=== PATIENT | male | born 1995 | race Caucasian/White ===

== ENCOUNTER 2016-07-15 23:06 | Emergency (ER) | payer BC ==
[2016-07-15 23:25] VITALS: RESP 18
[2016-07-16] MEDS ORDERED: DEXAMETHASONE SOD PHOSPHATE 10 MG/ML 1 ML VIAL IM STA (00:03)
[2016-07-16] MEDS ORDERED: FAMOTIDINE 20 MG TAB PO STA (00:03)
--- NOTE | 2016-07-16 00:06 | ED ---
General Adult HPI - General Chief complaint: Allergic Reaction Stated complaint: Allergic Reaction/SOB Time Seen by Provider: 07/15/16 23:59 Source: patient, RN notes reviewed, old records reviewed Mode of arrival: ambulatory Limitations: no limitations - History of Present Illness Initial comments: 20-year-old male here for evaluation. This patient presents here for evaluation of possible ALLERGIC reaction ALLERGIC exposure, patient has known history of peanut ALLERGY. Patient was eating wheat candy tonight that was barely happy about it. Patient became very paranoid about in the upper but he states he was able to drink a beer and felt better. Patient felt mild closing of his throat but no shortness of breath. Friends noticed that they thought his lips might of been swelling. Patient states it felt find him. No fever no rash noted - Related Data Previous Rx's Medication Instructions Recorded Famotidine [Pepcid] 40 mg PO BID #30 tab 07/16/16 diphenhydrAMINE [Benadryl] 25 mg PO TID #30 capsule 07/16/16 predniSONE 50 mg PO DAILY #5 tab 07/16/16 Allergies Allergy/AdvReac Type Severity Reaction Status Date / Time peanut Allergy Unknown Verified 07/15/16 23:25 Review of Systems ROS Statement: Those systems with pertinent positive or pertinent negative responses have been documented in the HPI. ROS Other: All systems not noted in ROS Statement are negative. Past Medical History Past Medical History: No Reported History History of Any Multi-Drug Resistant Organisms: None Reported Past Surgical History: No Surgical Hx Reported Past Psychological History: No Psychological Hx Reported Smoking Status: Never smoker Past Alcohol Use History: Occasional Past Drug Use History: Marijuana General Exam - General Exam Comments Initial Comments: No stridor, no wheezing, no swelling of lips Limitations: no limitations General appearance: alert, in no apparent distress Head exam: Present: atraumatic, normocephalic, normal inspection Eye exam: Present: normal appearance, PERRL, EOMI. Absent: scleral icterus, conjunctival injection, periorbital swelling ENT exam: Present: normal exam, mucous membranes moist Neck exam: Present: normal inspection. Absent: tenderness, meningismus, lymphadenopathy Respiratory exam: Present: normal lung sounds bilaterally. Absent: respiratory distress, wheezes, rales, rhonchi, stridor Cardiovascular Exam: Present: regular rate, normal rhythm, normal heart sounds. Absent: systolic murmur, diastolic murmur, rubs, gallop, clicks GI/Abdominal exam: Present: soft, normal bowel sounds. Absent: distended, tenderness, guarding, rebound, rigid Extremities exam: Present: normal inspection, full ROM, normal capillary refill. Absent: tenderness, pedal edema, joint swelling, calf tenderness Back exam: Present: normal inspection Neurological exam: Present: alert, oriented X3, CN II-XII intact Psychiatric exam: Present: normal affect, normal mood Skin exam: Present: warm, dry, intact, normal color. Absent: rash Course Vital Signs 07/15/16 23:21 Temperature 98.9 F Pulse Rate 77 Respiratory 18 Rate Blood Pressure 132/75 O2 Sat by Pulse 96 Oximetry Medical Decision Making - Medical Decision Making 20-year-old ER for evaluation of possible ALLERGIC reaction. Patient states he has history of. ALLERGY, will be treated appropriately with antihistamines, no evidence of anaphylaxis, no stridor, no swelling or less. Patient can be discharged home Disposition Clinical Impression: Allergic reaction Disposition: HOME SELF-CARE Condition: Good Instructions: Anaphylaxis (ED) Prescriptions: Famotidine [Pepcid] 40 mg PO BID #30 tab diphenhydrAMINE [Benadryl] 25 mg PO TID #30 capsule predniSONE 50 mg PO DAILY #5 tab Referrals: None,Stated [Primary Care Provider] - 1-2 days
[2016-07-16 00:18] VITALS: BP 123/76; PULSE 82; TEMP 99.8
== END 2016-07-16 00:45 | disposition home or self-care (01) ==
LOC: EC 23:06
DX: T78.40XA Allergy, unspecified, initial encounter (principal); Z91.010 Allergy to peanuts
CPT/HCPCS: 99283; J1100

== ENCOUNTER 2016-08-28 23:58 | Emergency (ER) | payer BC ==
[2016-08-29 00:03] VITALS: TEMP 97.6
[2016-08-29] MEDS ORDERED: diphenhydrAMINE 50 MG/ML 1 ML VIAL IVP STA (00:05)
[2016-08-29] MEDS ORDERED: FAMOTIDINE 20 MG/2 ML VIAL IV STA (00:05)
[2016-08-29] MEDS ORDERED: methylPREDNISolone SOD SUCCI 125 MG/2 ML VIAL IV STA (00:05)
--- NOTE | 2016-08-29 00:12 | ED ---
General Adult HPI - General Chief complaint: Allergic Reaction Stated complaint: allergic reaction to peanuts Time Seen by Provider: 08/29/16 00:05 Source: patient, RN notes reviewed Mode of arrival: ambulatory Limitations: no limitations - History of Present Illness Initial comments: This is a 19-year-old male presents with ALLERGIC reaction to peanuts that started about 1 hour ago. Patient states he has had a mild reaction to peanuts before but was able to control it with Benadryl and a shot of steroids. Patient states this time he has taken 2 doses of 50 mg Benadryl with no improvement in symptoms. Patient states he feels slightly short of breath and has hives. Patient states he had one episode of emesis after the first dose of Benadryl. Patient denies any ALLERGIES to medication. Patient denies any recent fever, chills, chest pain, abdominal pain, nausea/diarrhea, back pain, numbness, tingling, hematuria, headache, or visual changes, or any other complaints. - Related Data Previous Rx's Medication Instructions Recorded Famotidine [Pepcid] 40 mg PO HS 3 Days 08/29/16 diphenhydrAMINE [Benadryl] 50 mg PO TID 3 Days 08/29/16 predniSONE 20 mg PO DAILY 3 Days 08/29/16 Allergies Allergy/AdvReac Type Severity Reaction Status Date / Time peanut Allergy Unknown Verified 08/29/16 00:01 Review of Systems ROS Statement: Those systems with pertinent positive or pertinent negative responses have been documented in the HPI. ROS Other: All systems not noted in ROS Statement are negative. Past Medical History Past Medical History: No Reported History History of Any Multi-Drug Resistant Organisms: None Reported Past Surgical History: No Surgical Hx Reported Past Psychological History: No Psychological Hx Reported Smoking Status: Never smoker Past Alcohol Use History: Occasional Past Drug Use History: Marijuana General Exam - General Exam Comments Initial Comments: General: The patient is awake and alert, in no distress, and does not appear acutely ill. Eye: Pupils are equal, round and reactive to light, extra-ocular movements are intact. No nystagmus. There is normal conjunctiva bilaterally. No signs of icterus. Ears: TMs pink and pearly with intact cone of light bilaterally. Normal external ear canals Nose: Nasal turbinates pink and moist Mouth and throat: There are moist mucous membranes and no oral lesions. Neck: The neck is supple, there is no tenderness or JVD. Cardiovascular: There is a regular rate and rhythm. No murmur, rub or gallop is appreciated. Respiratory: Faint expiratory wheezes heard. Respirations are non-labored, breath sounds are equal. No stridor, rales, or rhonchi. Musculoskeletal: Normal ROM, no tenderness. Strength 5/5. Sensation intact. Radial pulses equal bilaterally 2+. Neurological: A&O x 3. CN II-XII intact, There are no obvious motor or sensory deficits. Coordination appears grossly intact. Speech is normal. Skin: Skin with generalized redness and urticaria to the bilateral upper extremities. Skin is warm and dry. Psychiatric: Cooperative, appropriate mood & affect, normal judgment. Limitations: no limitations Course Vital Signs 08/29/16 00:02 Temperature 97.6 F Pulse Rate 125 H Respiratory 20 Rate Blood Pressure 129/75 O2 Sat by Pulse 93 L Oximetry Medical Decision Making - Medical Decision Making This is a 20-year-old male presents with ALLERGIC reaction to peanuts. On physical exam faint expiratory wheezes heard. Respirations are non-labored, breath sounds are equal. No stridor, rales, or rhonchi. Skin with generalized erythema and urticaria to bilateral upper extremities. Patient was started on IV Solu-Medrol, Pepcid and Benadryl. Patient reports improvement in symptoms after this and patient's body is less red. Lungs are clear to auscultation bilaterally. I discussed the patient will be sent home on Benadryl, Pepcid and prednisone. I discussed that ALLERGIC reactions can be worse with subsequent exposures. Discussed to avoid the allergen. I discussed return parameters. Discussed that patient should follow up with PCP in one to 2 days or return to the [facility] for any worsening symptoms or for any further concerns. Patient was receptive to this plan and patient will be discharged home. I discussed this case with attending physician Dr. Graham who agrees the plan as stated above. Disposition Clinical Impression: Allergic reaction, Peanut allergy Disposition: HOME SELF-CARE Condition: Good Instructions: Anaphylaxis (ED) Additional Instructions: Please continue Benadryl, prednisone and Pepcid for the next 3 days. Please be aware that subsequent exposure to peanuts may cause a worse reaction. Please use medication as discussed. Please follow-up with family doctor in the next 2 days of symptoms have not improved. Please return to emergency room if the symptoms increase or worsen or for any other concerns. Prescriptions: Famotidine [Pepcid] 40 mg PO HS 3 Days diphenhydrAMINE [Benadryl] 50 mg PO TID 3 Days predniSONE 20 mg PO DAILY 3 Days Referrals: None,Stated [Primary Care Provider] - 1-2 days Ana Cristina Mccarthy MD [REFERRING] - 1-2 days Krystle Montes MD [STAFF PHYSICIAN] - 1-2 days Time of Disposition: 00:52
[2016-08-29 01:00] VITALS: BP 143/75; PULSE 82; RESP 16
== END 2016-08-29 01:00 | disposition home or self-care (01) ==
LOC: EC 23:58
DX: T78.1XXA Other adverse food reactions, not elsewhere classified, initial encounter (principal); L50.9 Urticaria, unspecified; Z91.010 Allergy to peanuts
CPT/HCPCS: 99283; 96374; 96375 ×2; J1200; J2930